=== PATIENT | female | born 1950 | race Caucasian/White ===

== ENCOUNTER 2018-11-22 07:06 | Day surgery (SDC) | payer MEDICARE ==
[~2018-11-22 07:06] MED LIST: Sodium Chloride 0.9% 10 ML Syringe FLUSH SCH
[2018-11-22] MEDS ORDERED: Midazolam 1 MG/ML 2 ML SDV IV ONE ×6 (07:07→08:13)
[2018-11-22] MEDS ORDERED: fentaNYL 100 MCG/2 ML SDV IV ONE ×3 (07:07→08:09)
[2018-11-22] MEDS ORDERED: fentaNYL 100 MCG/2 ML SDV ONE (07:18)
[2018-11-22] MEDS ORDERED: Midazolam 1 MG/ML 2 ML SDV ONE (07:18)
[2018-11-22] MEDS ORDERED: Dextrose 5%-0.45% NaCl 1,000 ML IV SCH (07:30)
--- NOTE | 2018-11-22 12:00 | OR ---
DATE: 11/22/2018 PREOPERATIVE DIAGNOSIS: Occult-positive stool and screening colonoscopy. POSTOPERATIVE DIAGNOSIS: Occult-positive stool and screening colonoscopy. PROCEDURE: Total colonoscopy. ANESTHESIA: Conscious sedation with IV Versed and fentanyl. SPECIMEN: None. FINDINGS: Normal colonoscopy. RECOMMENDATION: Followup colonoscopy in 10 years for polyp screening. INDICATION FOR PROCEDURE: This 68-year-old female referred by Dr. Eunice Lovelace for evaluation of occult-positive stool card and this patient has never had a colonoscopy. She is essentially here for screening. PROCEDURE IN DETAIL: After adequate preparation, a colonoscope was inserted into the rectum. This was easily passed all the way to the cecum. Confirmation of the cecum was made by visualization of the ileocecal valve and palpation in the right lower quadrant. The bowel prep was good. On withdrawal of the scope, there were no abnormalities noted. Rectal and anal exam were also clear. Air was suctioned from the colon, and the scope removed. [facility] /[id number]
== END 2018-11-22 09:27 | disposition home or self-care (01) ==
LOC: DL.ENDO 07:06
PROVIDERS: ATTEND Surgery
DX: R19.5 Other fecal abnormalities (principal)
CPT/HCPCS: 45378; J2250; J3010; J7042; G0121

== ENCOUNTER 2019-11-15 08:10 | Emergency (ER) | payer MEDICARE ==
--- NOTE | 2019-11-15 08:52 | EDM.PDOC ---
ED HPI GENERAL MEDICAL PROBLEM - General Chief Complaint: General Stated Complaint: COVID+,WEAKNESS,POSSIBLE YEAST INFECTION Time Seen by Provider: 11/15/19 08:35 Source of Information: Reports: Patient, RN, RN Notes Reviewed History Limitations: Reports: No Limitations - History of Present Illness INITIAL COMMENTS - FREE TEXT/NARRATIVE: Patient presents to ED via personal vehicle with complaints of weakness and loose stool x2. She reports she tested positive for COVID in a random screening and has been in quarantine since that time. She reports feeling progressively week over the past few days. She denies nausea, vomiting, cough, shaking chills, fever, chest pain, shortness of breath, palpitations, hematuria, melena, or syncope. She does attest to two bouts of diarrhea. She also states she has experiences dysuria and vaginal itching, for which she has been taking OTC Monistat. She reports she has been able to drink fluids as normal, but does not have much of an appetite and has therefore not been eating. - Related Data Allergies Allergy/AdvReac Type Severity Reaction Status Date / Time strawberries Allergy Rash Uncoded 11/15/19 08:17 Home Meds: Home Meds Calcium Citrate/Vitamin D3 [Citracal + D Maximum Caplet] 1 tab PO DAILY 11/19/18 [History] Cyanocobalamin (Vitamin B12) [Vitamin B12] 500 mcg PO DAILY 11/19/18 [History] FA/Lycopene/Lut/MV,Ca,Iron,Min [Centrum] 1 tab PO DAILY 11/19/18 [History] Past Medical History HEENT History: Reports: Cataract Cardiovascular History: Reports: None Respiratory History: Reports: None Gastrointestinal History: Reports: None Genitourinary History: Reports: None 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: , 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 Musculoskeletal History: Reports: None Neurological History: Reports: None Psychiatric History: Reports: None Endocrine/Metabolic History: Reports: None Hematologic History: Reports: None Immunologic History: Reports: None Oncologic (Cancer) History: Reports: None Dermatologic History: Reports: Eczema, Psoriasis - Infectious Disease History Infectious Disease History: Reports: Chicken Pox, Measles - Past Surgical History Head Surgeries/Procedures: Reports: None HEENT Surgical History: Reports: None Cardiovascular Surgical History: Reports: None GI Surgical History: Reports: None Female Surgical History: Reports: D&C Social & Family History - Family History Family Medical History: Noncontributory - Caffeine Use Caffeine Use: Reports: None ED ROS GENERAL - Review of Systems Review Of Systems: Comprehensive ROS is negative, except as noted in HPI. ED EXAM, GENERAL - Physical Exam Exam: See Below Exam Limited By: No Limitations General Appearance: Alert, No Apparent Distress Throat/Mouth: Normal Inspection, Normal Lips, Normal Voice, No Airway Compromise Head: Atraumatic, Normocephalic Neck: Normal Inspection, Supple, Non-Tender, Full Range of Motion Respiratory/Chest: No Respiratory Distress, Lungs Clear, Normal Breath Sounds, No Accessory Muscle Use, Chest Non-Tender Cardiovascular: Normal Peripheral Pulses, Regular Rate, Rhythm, No Edema, No Gallop, No JVD, No Murmur, No Rub GI/Abdominal: Normal Bowel Sounds, Soft, Non-Tender, No Distention, No Mass (Female) Exam: Deferred Rectal (Female) Exam: Deferred Back Exam: Normal Inspection. No: CVA Tenderness (L), CVA Tenderness (R) Extremities: Normal Inspection, Normal Range of Motion, Non-Tender Neurological: Alert, Oriented, CN II-XII Intact Psychiatric: Normal Affect, Normal Mood Skin Exam: Warm, Dry, Intact Course - Vital Signs Last Recorded V/S: Last Vital Signs Temp 97.3 F 11/15/19 08:18 Pulse 110 H 11/15/19 08:18 Resp 16 11/15/19 08:18 BP 146/78 H 11/15/19 08:18 Pulse Ox 96 11/15/19 08:18 - Orders/Labs/Meds Orders: Active Orders 24 hr Category Date Time Status CULTURE URINE [RM] Stat Lab 11/15/19 09:55 Received Labs: Laboratory Tests 11/15/19 11/15/19 11/15/19 Range/Units 08:58 08:58 09:55 WBC 6.5 (5.0-10.0) 10^3/uL RBC 4.49 (4.2-5.4) 10^6/uL Hgb 12.8 (12.0-16.0) g/dL Hct 38.3 (37.0-47.0) % MCV 85.3 (80-100) fL MCH 28.5 (27.0-34.0) pg MCHC 33.4 (33.0-35.0) g/dL Plt Count 297 (150-450) 10^3/uL Neut % (Auto) 71.1 (42.2-75.2) % Lymph % (Auto) 17.7 L (20.5-50.1) % [place] % (Auto) 10.9 H (2-8) % Eos % (Auto) 0.3 L (1.0-3.0) % Baso % (Auto) 0.0 (0.0-1.0) % Sodium 139 (136-145) mmol/L Potassium 3.2 L (3.5-5.1) mmol/L Chloride 101 (98-107) mmol/L Carbon Dioxide 27 (21-32) mmol/L Anion Gap 14.2 H (7-13) mEq/L BUN 13 (7-18) mg/dL Creatinine 0.80 (0.55-1.02) mg/dL Est Cr Clr Drug Dosing 58.04 mL/min Estimated GFR (MDRD) > 60 BUN/Creatinine Ratio 16.2 (No establ ref range) Glucose 131 H (74-99) mg/dL Calcium 8.2 L (8.5-10.1) mg/dL Total Bilirubin 0.8 (0.2-1.0) mg/dL AST 109 H (15-37) U/L ALT 158 H (14-59) U/L Alkaline Phosphatase 121 H (46-116) U/L Total Protein 6.8 (6.4-8.2) g/dL Albumin 2.7 L (3.4-5.0) g/dL Globulin 4.1 Albumin/Globulin Ratio 0.66 Urine Color Yellow (YELLOW) Urine Appearance Slightly cloudy (CLEAR) Urine pH 6.5 (5.0-9.0) Ur Specific [place] 1.015 (1.005-1.030) Urine Protein Negative (NEGATIVE) Urine Glucose (UA) Negative (NEGATIVE) Urine Ketones Negative (NEGATIVE) Urine Occult Blood Trace-intact H (NEGATIVE) Urine Nitrite Negative (NEGATIVE) Urine Bilirubin Negative (NEGATIVE) Urine Urobilinogen 0.2 (0.2-1.0) mg/dL Ur Leukocyte Esterase Small H (NEGATIVE) Urine RBC 0-5 /HPF Urine WBC 0-5 (0-5/HPF) /HPF Ur Epithelial Cells Few (NOT SEEN) /HPF Urine Bacteria Rare (0-FEW/HPF) /HPF Urine Mucus Rare (NOT SEEN) /LPF - Re-Assessments/Exams Free Text/Narrative Re-Assessment/Exam: 11/15/19 10:12 CMP revealed mild hypokalemia and mildly elevated of liver enzymes with no other acute findings. Oxygen saturation and vital signs have remained normal during her stay. In no respiratory distress. She appears to be stable to self- quaratine at home. Departure - Departure Time of Disposition: 10:35 Disposition: Home, Self-Care 01 Condition: Good Clinical Impression: COVID-19, Hypokalemia - Discharge Information *PRESCRIPTION DRUG MONITORING PROGRAM REVIEWED*: Not Applicable *COPY OF PRESCRIPTION DRUG MONITORING REPORT IN PATIENT ROGELIO: Not Applicable Instructions: COVID-19 Frequently Asked Questions, Potassium Content of Foods Forms: ED Department Discharge Additional Instructions: Rx: Diflucan Drink plenty of fluids to stay hydrated. Eat a balanced diet, regardless of appetite - Ensure drinks or similar protein drinks can be used short-term to supplement a meal. Small meals or snacks may help. Sepsis Event Note (ED) - Evaluation Sepsis Screening Result: No Definite Risk - Focused Exam Vital Signs: Vital Signs Temp Pulse Resp BP Pulse Ox 11/15/19 08:18 97.3 F 110 H 16 146/78 H 96 - My Orders Last 24 Hours: My Active Orders 11/15/19 09:55 CULTURE URINE [RM] Stat - Assessment/Plan Last 24 Hours: My Active Orders 11/15/19 09:55 CULTURE URINE [RM] Stat
[2019-11-15 09:26] LABS: ANION GAP 14.2 mEq/L (7-13); CHLORIDE,CL 101 mmol/L (98-107); SODIUM,NA 139 mmol/L (136-145)
== END 2019-11-15 10:46 | disposition home or self-care (01) ==
LOC: DL.ED 08:10
DX: U07.1 COVID-19 (principal); E87.6 Hypokalemia; Z91.018 Allergy to other foods
CPT/HCPCS: 36415; 80053; 81001; 85025; 87086; 87088; 87186; 99283; 99284